=== PATIENT | female | born 1970 | race Caucasian/White ===

== ENCOUNTER 2018-11-08 06:32 | Inpatient (IN) | payer BC ==
[2018-11-08] MEDS: BUPIVACAINE 0.25% (MPF) 30 ML INJ INJ ×2 (07:06→09:16)
[2018-11-08] MEDS ORDERED: PROPOFOL 20 ML (07:34)
[2018-11-08] MEDS ORDERED: NEOSTIGMINE 3 MG/3 ML SYRINGE (07:34)
[2018-11-08] MEDS ORDERED: ROCURONIUM 50 MG INJ (07:34)
[2018-11-08] MEDS ORDERED: MEPERIDINE 100 MG INJ (07:34)
[2018-11-08] MEDS ORDERED: LIDOCAINE 2% (SDV) 5 ML INJ (07:34)
[2018-11-08] MEDS ORDERED: GLYCOPYRROLATE 0.4 MG INJ (07:34)
[2018-11-08] MEDS ORDERED: SUCCINYLCHOLINE CHLORIDE 100 MG/5 ML SYG IV (07:34)
[2018-11-08] MEDS ORDERED: OXYCODONE/ACETAMINOPHEN (5/325) TAB PO ×2 (08:30)
[2018-11-08] MEDS ORDERED: EPHEDrine SULFATE 50 MG/5 ML SYG IV (08:30)
[2018-11-08] MEDS ORDERED: MEPERIDINE 25 MG INJ IV (08:30)
[2018-11-08] MEDS ORDERED: LABETALOL HCL 20MG INJ IV (08:30)
[2018-11-08] MEDS ORDERED: HYDROmorphONE 1 MG/5 ML IV SYRINGE IV ×3 (08:30)
[2018-11-08] MEDS ORDERED: DIPHENHYDRAMINE 50 MG INJ IV (08:30)
[2018-11-08] MEDS ORDERED: ONDANSETRON 4 MG INJ IV (08:30)
[2018-11-08] MEDS ORDERED: METOCLOPRAMIDE 10 MG INJ IV (08:30)
[2018-11-08] MEDS ORDERED: MIDAZOLAM 1 MG/ML 2 ML INJ IV (08:30)
[2018-11-08] MEDS ORDERED: FENTAnyl 50 MCG/ML VIAL IV ×2 (08:30)
[2018-11-08] MEDS ORDERED: hydrALAzine 20 MG INJ IV (08:30)
[2018-11-08] MEDS ORDERED: METOCLOPRAMIDE 10 MG INJ (09:10)
[2018-11-08] MEDS ORDERED: ONDANSETRON 4 MG INJ (09:10)
[2018-11-08] MEDS: FENTAnyl 50 MCG/ML VIAL IV ×2 (09:37→09:46)
[2018-11-08] MEDS ORDERED: morphine 2 MG INJ IV ×2 (10:00→10:30)
[2018-11-08] MEDS ORDERED: HYDROCODONE/APAP (5/325) TAB PO ×2 (10:00→10:30)
[2018-11-08 10:25] LABS: ADD MAN DIFF? NO
[2018-11-08 10:26] LABS: BASOPHILS % 0.1 % (0.0-2.0); HEMATOCRIT 28.1 % (37.0-47.0); HEMOGLOBIN 8.8 g/dl (12.0-16.0); LYMPHOCYTES # 2.2 10^3/ul (0.8-2.9); LYMPHOCYTES % 28.2 % (15.0-51.0); MEAN CORPUSCULAR HEMOGLOBIN 27.7 pg (29.0-33.0); MEAN CORPUSCULAR HGB CONC 31.3 g/dl (32.0-37.0); MEAN CORPUSCULAR VOLUME 88.4 fl (82.0-101.0); MEAN PLATELET VOLUME 8.7 fl (7.4-10.4); MONOCYTE # 0.5 10^3/ul (0.3-0.9); MONOCYTES % 5.7 % (0.0-11.0); NEUTROPHIL # 5.2 10^3/ul (1.6-7.5); NEUTROPHILS % 65.6 % (39.0-77.0); PLATELET COUNT 257 10^3/UL (140-415); RED BLOOD COUNT 3.18 10^6/ul (4.20-5.40); RED CELL DISTRIBUTION WIDTH 12.9 % (11.5-14.5)
[2018-11-08 10:26] LABS: WHITE BLOOD COUNT 7.9 10^3/ul (4.8-10.8)
[2018-11-08 10:32] LABS: HOLD TRANSMISSIONS 1
[2018-11-08 10:43] LABS: ALANINE AMINOTRANSFERASE 21 IU/L (13-69); ALBUMIN 3.5 g/dl (3.3-4.9); ALBUMIN/GLOBULIN RATIO 1.25; ALKALINE PHOSPHATASE 51 IU/L (42-121); ANION GAP 8 (5-13); ASPARTATE AMINO TRANSFERASE 17 IU/L (15-46); BILIRUBIN,INDIRECT 0.2 mg/dl (0-1.1); BILIRUBIN,TOTAL 0.2 mg/dl (0.2-1.3); BLOOD UREA NITROGEN 9 mg/dl (7-20); CALCIUM 8.4 mg/dl (8.4-10.2); CARBON DIOXIDE 25 mmol/L (21-31); CHLORIDE 107 mmol/L (97-110); CREATININE 0.54 mg/dl (0.44-1.00); Estimated GFR > 60 mL/min (>60); GLUCOSE 158 mg/dl (70-220); SODIUM 140 mmol/L (135-144); TOTAL PROTEIN 6.3 g/dl (6.1-8.1)
[2018-11-08] MEDS ORDERED: CEFAZOLIN 1 GM INJ (11:35)
[2018-11-08] MEDS: SOD CHLORIDE 0.9% 1,000 ML IV ×2 (13:36→23:50)
[2018-11-08] MEDS: ONDANSETRON 4 MG INJ IV (14:35)
[2018-11-08] MEDS: CEFAZOLIN 2 GM/50 ML (PMX) 50 ML IVPB ×2 (16:50→23:50)
[2018-11-08] MEDS: ACETAMINOPHEN 325 MG TAB PO (16:56)
[2018-11-08] MEDS: carBAMAZepine CHEW 100 MG CHEW PO ×2 (17:11→20:45)
[2018-11-08] MEDS: LORATADINE 10 MG TAB PO (20:44)
[2018-11-08] MEDS: GABAPENTIN 300 MG CAP PO (20:45)
[2018-11-08] MEDS: hydrOXYzine HCL 25 MG TAB PO (20:45)
[2018-11-09] MEDS: SOD CHLORIDE 0.9% 1,000 ML IV (06:00)
[2018-11-09] MEDS: carBAMAZepine CHEW 100 MG CHEW PO ×2 (08:53→13:12)
[2018-11-09] MEDS: CEFAZOLIN 2 GM/50 ML (PMX) 50 ML IVPB (09:24)
[2018-11-09] MEDS: ACETAMINOPHEN 325 MG TAB PO (11:23)
[2018-11-09 11:55] LABS: ADD MAN DIFF? NO
[2018-11-09 12:06] LABS: WHITE BLOOD COUNT 7.8 10^3/ul (4.8-10.8)
[2018-11-09 12:06] LABS: HEMATOCRIT 27.7 % (37.0-47.0); HEMOGLOBIN 8.7 g/dl (12.0-16.0); LYMPHOCYTES # 1.5 10^3/ul (0.8-2.9); LYMPHOCYTES % 18.9 % (15.0-51.0); MEAN CORPUSCULAR HEMOGLOBIN 27.8 pg (29.0-33.0); MEAN CORPUSCULAR HGB CONC 31.4 g/dl (32.0-37.0); MEAN CORPUSCULAR VOLUME 88.5 fl (82.0-101.0); MEAN PLATELET VOLUME 9.3 fl (7.4-10.4); MONOCYTE # 0.6 10^3/ul (0.3-0.9); MONOCYTES % 8.1 % (0.0-11.0); NEUTROPHIL # 5.6 10^3/ul (1.6-7.5); NEUTROPHILS % 72.6 % (39.0-77.0); PLATELET COUNT 242 10^3/UL (140-415); RED BLOOD COUNT 3.13 10^6/ul (4.20-5.40); RED CELL DISTRIBUTION WIDTH 12.9 % (11.5-14.5)
[2018-11-09 12:17] LABS: ALANINE AMINOTRANSFERASE 13 IU/L (13-69); ALBUMIN 3.4 g/dl (3.3-4.9); ALBUMIN/GLOBULIN RATIO 1.17; ALKALINE PHOSPHATASE 43 IU/L (42-121); ANION GAP 6 (5-13); ASPARTATE AMINO TRANSFERASE 18 IU/L (15-46); BILIRUBIN,INDIRECT 0.2 mg/dl (0-1.1); BILIRUBIN,TOTAL 0.2 mg/dl (0.2-1.3); BLOOD UREA NITROGEN 5 mg/dl (7-20); CALCIUM 7.7 mg/dl (8.4-10.2); CARBON DIOXIDE 28 mmol/L (21-31); CHLORIDE 106 mmol/L (97-110); CREATININE 0.48 mg/dl (0.44-1.00); Estimated GFR > 60 mL/min (>60); GLUCOSE 154 mg/dl (70-220); POTASSIUM 3.8 mmol/L (3.5-5.1); SODIUM 140 mmol/L (135-144); TOTAL PROTEIN 6.3 g/dl (6.1-8.1)
== END 2018-11-09 13:54 | disposition home or self-care (01) | DRG 627 ==
LOC: REC 06:32 → MS1 11:16
PROC: 0GTK0ZZ Resection of Thyroid Gland, Open Approach (ICD-10-PCS; principal; 2018-11-08 07:30)
DX: E04.9 Nontoxic goiter, unspecified (principal); G40.909 Epilepsy, unspecified, not intractable, without status epilepticus; E66.9 Obesity, unspecified; Z68.36 Body mass index [BMI] 36.0-36.9, adult
CPT/HCPCS: 80053; 85025; 88307